=== PATIENT | male | born 1975 | race Caucasian/White ===

== ENCOUNTER → 2020-12-23 10:21 | Outpatient (CLI) | payer BC, SELFPAY ==
--- NOTE | ~2020-12-23 | MR_ITS ---
EXAMINATION: MR brain/brain stem wo con DATE: 12/23/2020 11:08 INDICATION: Headache, unspecified. TECHNIQUE: Magnetic resonance imaging (MRI) of the brain and brainstem was performed without intraven ous contrast. Sequences included sagittal and axial T1-weighted FSE, axial diffusion-weighted FS EPI, axial T2*-weighted GRE, axial T2-weighted FLAIR Propeller, and axial T2-weighted Propeller. Apparent diffusion coefficient (ADC) maps were created. COMPARISON: None. FINDINGS: There is no intracranial hemorrhage or acute infarction. There is opacification of the left internal auditory canal. The ventricles are normal in size. There is mild mucosal thickening in the paranasal sinuses. The orbits are normal. The mastoid air cells are normal. IMPRESSION: 1. Opacification of the left internal auditory canal, which may be a vestibular schwannoma or partial volume artifact. MRI of the internal auditory canals and brain without and with contrast is recommen ded. Reviewed, dictated and finalized at location A. IMPRESSION: 1. Opacification of the left internal auditory canal, which may be a vestibular schwannoma or partial volume artifact. MRI of the internal auditory canals and brain without and with contrast is recommended.
== END ==
DX: R51.9 Headache, unspecified (principal)
CPT/HCPCS: 70551

== ENCOUNTER → 2021-01-01 13:05 | Outpatient (CLI) | payer BC, SELFPAY ==
--- NOTE | ~2021-01-01 | MR_ITS ---
EXAMINATION: MR brain/brain stem wo/w con DATE: 01/01/2021 14:13 INDICATION: Dizziness. Recurrent headache. TECHNIQUE: Magnetic resonance imaging (MRI) of the brain and brainstem was performed without with 20 mL MultiHance intravenous contrast. Sequences included sagittal and axial T1-weighted FSE, axial diff usion-weighted FS EPI, axial T2*-weighted GRE, axial T2-weighted FLAIR Propeller, axial T2-weighted P ropeller, small [id number]-izcv coronal FIESTA, small tyzcq-my-lbai coronal T1-weighted FSE, and small amymr-fg-qaqx axial T1-weighted SPGR. Postcontrast sequences included axial T1-weighted FSE, small fi eld-of-view coronal T1-weighted FSE, and small ienzg-an-efku axial T1-weighted SPGR. Apparent diffusi on coefficient (ADC) maps were created. COMPARISON: Brain MRI 12/23/2020 FINDINGS: There is no intracranial hemorrhage, acute infarction, or abnormal intracranial mass lesion . The ventricles are normal in size. The internal auditory canals and inner and middle ears are emily l. There is mild mucosal thickening in the paranasal sinuses. The orbits are normal. IMPRESSION: 1. Normal brain. Reviewed, dictated and finalized at location A. IMPRESSION: 1. Normal brain.
[2021-01-01 13:36] LABS: Estimated Glomerular Filt Rate 55
== END ==
PROVIDERS: PCP Registered Nurse; Visit Provider Registered Nurse
DX: R42 Dizziness and giddiness (principal); R51.9 Headache, unspecified
CPT/HCPCS: 70553; A9577